=== PATIENT | female | born 1945 | race Caucasian/White ===

== ENCOUNTER 2020-02-13 17:16 | Inpatient (IN) ==
[2020-02-14] MEDS ORDERED: NON-FORMULARY MEDICATION 1 EACH EACH (Acetaminophen [Tylenol Arthritis] 1,300 MG) PO PRN (16:55)
[2020-02-14] MEDS ORDERED: Ibuprofen 200 MG TABLET PO PRN (16:55)
[2020-02-14] MEDS: *HR* OxyCODONE Immed Rel 5 MG TABLET PO PRN (20:25)
[2020-02-14] MEDS: sulfaSALAzine 500 MG TABLET PO SCH (20:25)
[2020-02-15] MEDS: *HR* OxyCODONE Immed Rel 5 MG TABLET PO PRN ×2 (02:49→12:13)
[2020-02-15 07:00] LABS: Hematocrit 24.2 % (35.3-44.9); Mean Corpuscular HGB Conc 33.1 g/dL (31.6-35.5); Mean Corpuscular Hemoglobin 35.9 pg (28.0-33.3); Mean Corpuscular Volume 108.5 fL (83.0-100.0); Mean Platelet Volume 10.4 fL (9.4-12.4); Platelet Count 269 K/mcL (140-400); Red Blood Count 2.23 M/mcL (3.82-4.97); Red Cell Distribution Width 12.7 % (11.5-14.5); White Blood Count 6.9 K/mcL (4.3-11.1)
[2020-02-15 07:27] LABS: Alanine Aminotransferase 10 Units/L (7-52); Albumin 3.4 g/dL (3.5-5.7); Albumin/Globulin Ratio 1.5 (1.1-2.2); Alkaline Phosphatase 34 Units/L (34-104); Aspartate Amino Transferase 15 Units/L (13-39); BUN/Creatinine Ratio 24 (6-26); Bilirubin,Total 0.6 mg/dL (0.3-1.0); Blood Urea Nitrogen 13 mg/dL (8-23); Calcium 8.4 mg/dL (8.6-10.3); Carbon Dioxide 31 mEq/L (23-29); Chloride 99 mEq/L (98-107); Globulin 2.2 g/dL (2.4-3.5); Glucose 83 mg/dL (70-105); Magnesium 1.8 mg/dL (1.6-2.6); Osmolality,Calculated 279 (280-300); Potassium 3.7 mEq/L (3.5-5.1); Sodium 135 mEq/L (136-145); Total Protein 5.6 g/dL (6.4-8.9); eGFR For African Americans > 60 (> 60); eGFR For Non-African Americans > 60 (> 60)
[2020-02-15] MEDS: Aspirin Enteric Coated 81 MG Tablet PO SCH (08:33)
[2020-02-15] MEDS: sulfaSALAzine 500 MG TABLET PO SCH ×2 (08:33→20:09)
[2020-02-15] MEDS: Cholecalciferol (D-3) 1,000 UNIT (25MCG) TABLET PO SCH (08:33)
[2020-02-15] MEDS: Vitamin E 200 UNIT (90MG) CAPSULE PO SCH (08:33)
[2020-02-15] MEDS: Cyanocobalamin (B-12) 1,000 MCG TABLET PO SCH (08:33)
[2020-02-15] MEDS: Ibuprofen 400 MG TABLET PO PRN ×2 (08:34→17:03)
[2020-02-15] MEDS: Folic Acid 1 MG TABLET PO SCH (08:34)
[2020-02-15] MEDS: Acetaminophen 325 MG TABLET PO PRN (20:12)
[2020-02-16] MEDS: Ibuprofen 400 MG TABLET PO PRN (04:36)
[2020-02-16] MEDS: *HR* Enoxaparin 40 MG/0.4 ML SYRINGE SQ SCH (05:59)
[2020-02-16] MEDS: sulfaSALAzine 500 MG TABLET PO SCH ×2 (08:03→21:59)
[2020-02-16] MEDS: Folic Acid 1 MG TABLET PO SCH (08:03)
[2020-02-16] MEDS: *HR* OxyCODONE Immed Rel 5 MG TABLET PO PRN ×3 (08:03→21:59)
[2020-02-16] MEDS: Aspirin Enteric Coated 81 MG Tablet PO SCH (08:03)
[2020-02-16] MEDS: Vitamin E 200 UNIT (90MG) CAPSULE PO SCH (08:03)
[2020-02-16] MEDS: Cyanocobalamin (B-12) 1,000 MCG TABLET PO SCH (08:04)
[2020-02-16] MEDS: Cholecalciferol (D-3) 1,000 UNIT (25MCG) TABLET PO SCH (08:04)
[2020-02-16] MEDS ORDERED: Methotrexate PFS 25 MG/ML VIAL SQ SCH (17:00)
[2020-02-17] MEDS: Ibuprofen 400 MG TABLET PO PRN ×2 (02:05→20:23)
[2020-02-17] MEDS: *HR* OxyCODONE Immed Rel 5 MG TABLET PO PRN ×3 (04:35→16:48)
[2020-02-17] MEDS: Acetaminophen 325 MG TABLET PO PRN (07:57)
[2020-02-17] MEDS: sulfaSALAzine 500 MG TABLET PO SCH ×2 (07:57→20:24)
[2020-02-17] MEDS: Folic Acid 1 MG TABLET PO SCH (07:57)
[2020-02-17] MEDS: Vitamin E 200 UNIT (90MG) CAPSULE PO SCH (07:57)
[2020-02-17] MEDS: Aspirin Enteric Coated 81 MG Tablet PO SCH (07:57)
[2020-02-17] MEDS: Cyanocobalamin (B-12) 1,000 MCG TABLET PO SCH (07:57)
[2020-02-17] MEDS: Cholecalciferol (D-3) 1,000 UNIT (25MCG) TABLET PO SCH (07:58)
[2020-02-17] MEDS: *HR* Enoxaparin 40 MG/0.4 ML SYRINGE SQ SCH (07:58)
[2020-02-17] MEDS ORDERED: Furosemide 20 MG TABLET PO ONE (08:13)
[2020-02-18] MEDS: *HR* Enoxaparin 40 MG/0.4 ML SYRINGE SQ SCH (06:11)
[2020-02-18] MEDS: Ibuprofen 400 MG TABLET PO PRN ×2 (06:11→14:12)
[2020-02-18 07:44] LABS: Basophils % 0.5 %; Eosinophils # 0.3 K/mcL (0.0-0.6); Eosinophils % 4.6 %; Hematocrit 24.7 % (35.3-44.9); Immature Granulocytes % 0.5 % (0-4); Lymphocytes # 0.9 K/mcL (0.6-4.6); Lymphocytes % 15.1 %; Mean Corpuscular HGB Conc 32.4 g/dL (31.6-35.5); Mean Corpuscular Hemoglobin 35.2 pg (28.0-33.3); Mean Corpuscular Volume 108.8 fL (83.0-100.0); Mean Platelet Volume 10.1 fL (9.4-12.4); Monocytes # 0.8 K/mcL (0.0-1.3); Monocytes % 13.7 %; Platelet Count 326 K/mcL (140-400); Red Blood Count 2.27 M/mcL (3.82-4.97); Red Cell Distribution Width 13.2 % (11.5-14.5); Segmented Neutrophils % 65.6 %; White Blood Count 6.1 K/mcL (4.3-11.1)
[2020-02-18 08:07] LABS: BUN/Creatinine Ratio 27 (6-26); Blood Urea Nitrogen 15 mg/dL (8-23); Calcium 8.6 mg/dL (8.6-10.3); Carbon Dioxide 31 mEq/L (23-29); Chloride 97 mEq/L (98-107); Glucose 92 mg/dL (70-105); Osmolality,Calculated 278 (280-300); Sodium 134 mEq/L (136-145); eGFR For African Americans > 60 (> 60); eGFR For Non-African Americans > 60 (> 60)
[2020-02-18] MEDS: Cyanocobalamin (B-12) 1,000 MCG TABLET PO SCH (09:32)
[2020-02-18] MEDS: sulfaSALAzine 500 MG TABLET PO SCH ×2 (09:32→20:40)
[2020-02-18] MEDS: Cholecalciferol (D-3) 1,000 UNIT (25MCG) TABLET PO SCH (09:32)
[2020-02-18] MEDS: Aspirin Enteric Coated 81 MG Tablet PO SCH (09:33)
[2020-02-18] MEDS: Vitamin E 200 UNIT (90MG) CAPSULE PO SCH (09:33)
[2020-02-18] MEDS: Acetaminophen 325 MG TABLET PO PRN (09:33)
[2020-02-18] MEDS: Folic Acid 1 MG TABLET PO SCH (09:34)
[2020-02-18] MEDS ORDERED: Furosemide 20 MG TABLET PO ONE (13:45)
[2020-02-18] MEDS: *HR* OxyCODONE Immed Rel 5 MG TABLET PO PRN (20:39)
[2020-02-19] MEDS: Acetaminophen 325 MG TABLET PO PRN (06:43)
[2020-02-19] MEDS: *HR* Enoxaparin 40 MG/0.4 ML SYRINGE SQ SCH (06:43)
[2020-02-19] MEDS: Aspirin Enteric Coated 81 MG Tablet PO SCH (08:26)
[2020-02-19] MEDS: Cholecalciferol (D-3) 1,000 UNIT (25MCG) TABLET PO SCH (08:26)
[2020-02-19] MEDS: sulfaSALAzine 500 MG TABLET PO SCH ×2 (08:26→21:13)
[2020-02-19] MEDS: Vitamin E 200 UNIT (90MG) CAPSULE PO SCH (08:26)
[2020-02-19] MEDS: Cyanocobalamin (B-12) 1,000 MCG TABLET PO SCH (08:26)
[2020-02-19] MEDS: Folic Acid 1 MG TABLET PO SCH (08:27)
[2020-02-19] MEDS ORDERED: Furosemide 20 MG TABLET PO ONE (09:55)
[2020-02-19] MEDS: *HR* OxyCODONE Immed Rel 5 MG TABLET PO PRN ×2 (13:24→21:21)
[2020-02-20] MEDS: Ibuprofen 400 MG TABLET PO PRN ×2 (04:40→17:03)
[2020-02-20] MEDS: *HR* Enoxaparin 40 MG/0.4 ML SYRINGE SQ SCH (06:36)
[2020-02-20] MEDS: Cholecalciferol (D-3) 1,000 UNIT (25MCG) TABLET PO SCH (09:29)
[2020-02-20] MEDS: Aspirin Enteric Coated 81 MG Tablet PO SCH (09:29)
[2020-02-20] MEDS: Cyanocobalamin (B-12) 1,000 MCG TABLET PO SCH (09:29)
[2020-02-20] MEDS: sulfaSALAzine 500 MG TABLET PO SCH ×2 (09:29→20:08)
[2020-02-20] MEDS: Folic Acid 1 MG TABLET PO SCH (09:30)
[2020-02-20] MEDS: Vitamin E 200 UNIT (90MG) CAPSULE PO SCH (09:30)
[2020-02-20] MEDS: Acetaminophen 325 MG TABLET PO PRN (20:21)
[2020-02-21] MEDS: Ibuprofen 400 MG TABLET PO PRN (03:54)
[2020-02-21] MEDS: *HR* Enoxaparin 40 MG/0.4 ML SYRINGE SQ SCH (06:31)
[2020-02-21 07:54] VITALS: BP 134/79
[2020-02-21] MEDS: sulfaSALAzine 500 MG TABLET PO SCH (08:23)
[2020-02-21] MEDS: Folic Acid 1 MG TABLET PO SCH (08:23)
[2020-02-21] MEDS: Cholecalciferol (D-3) 1,000 UNIT (25MCG) TABLET PO SCH (08:24)
[2020-02-21] MEDS: Cyanocobalamin (B-12) 1,000 MCG TABLET PO SCH (08:24)
[2020-02-21] MEDS: Aspirin Enteric Coated 81 MG Tablet PO SCH (08:24)
[2020-02-21] MEDS: Vitamin E 200 UNIT (90MG) CAPSULE PO SCH (08:24)
[2020-02-21] MEDS: Acetaminophen 325 MG TABLET PO PRN (11:14)
== END 2020-02-21 12:02 | disposition home health service (06) | DRG 560 ==
LOC: INPPIK 02-14 18:25
PROVIDERS: ADMIT Family Medicine; ATTEND Family Medicine